=== PATIENT | male | born 1935 | race Native Hawaiian/Other Pacific Islander ===

== ENCOUNTER 2017-08-21 18:28 | Emergency (ER) | payer MEDICARE, SELFPAY ==
[2017-08-21 18:29] VITALS: BMI 21.2
[2017-08-21 18:57] VITALS: TEMP 97.7
--- NOTE | 2017-08-21 19:57 | C.PDOC ---
History Of Present Illness 81 year old male presents to the ED [facility] for evaluation of poorly controlled blood pressure. Patient reports that he felt dizzy while at home earlier this evening which has never happened in the past. He took Losartan 100 mg along with 3 other medications just prior to arrival. No other acute complaints at this time. Time Seen by Provider: 08/21/17 19:33 Chief Complaint (Nursing): High Blood Pressure History Per: Patient History/Exam Limitations: no limitations Onset/Duration Of Symptoms: Hrs Current Symptoms Are (Timing): Still Present Associated Symptoms: Dizziness. denies: Chest Pain Recent travel outside of the [place]: No Past Medical History Reviewed: Historical Data, Nursing Documentation, Vital Signs Vital Signs: Last Vital Signs Temp 97.7 F 08/21/17 18:52 Pulse 58 L 08/21/17 20:28 Resp 18 08/21/17 20:28 BP 156/78 H 08/21/17 20:28 Pulse Ox 98 08/21/17 20:48 - Medical History PMH: Arthritis, Diabetes, Diverticulitis (Perforated diverticulitis in 2013.), Fractures (LEFT FEMORAL JOINT DILOCATION CHILD), Gall Bladder Disease, HTN, Hypercholesterolemia Denies: Chronic Kidney Disease Surgical History: Cholecystectomy, Endoscopy - [facility] Procedures CLOSED ENDOSCOPIC BIOPSY OF LARGE INTESTINE (01/05/15) DX ULTRASOUND NEC (11/28/14) ENDO RECTUM POLYPECTOMY (09/16/13) ENDOSC RETROGRADE CHOLANGIOPANCREATOGRAPHY [ERCP] (06/10/14) ESOPHAGOGASTRODUODENOSCOPY [EGD] W/CLOSED BIOPSY (01/05/15) LAPAROSCOP LYSIS-PERITONEAL ADHES (05/10/14) LAPAROSCOPIC CHOLECYSTECTOMY (05/10/14) OPEN AND OTHER SIGMOIDECTOMY (09/16/13) PACKED CELL TRANSFUSION (09/16/13) PERCUTAN NEEDLE BIOPSY OF PROSTATE (11/28/14) UNILAT ING SRINATH REP NOS (09/16/13) Family History: States: Unknown Family Hx - Social History Hx Tobacco Use: No Hx Alcohol Use: No Hx Substance Use: No - Immunization History Hx Tetanus Toxoid Vaccination: No Hx Influenza Vaccination: Yes Hx Pneumococcal Vaccination: Yes Review Of Systems Except As Marked, All Systems Reviewed And Found Negative. Constitutional: Negative for: Fever, Chills ENT: Negative for: Ear Pain, Throat Pain Cardiovascular: Negative for: Chest Pain Respiratory: Negative for: Cough, Shortness of Breath Gastrointestinal: Negative for: Nausea, Vomiting, Abdominal Pain, Diarrhea Skin: Negative for: Rash Neurological: Positive for: Dizziness. Negative for: Headache Physical Exam - Physical Exam Appears: Well, Non-toxic, No Acute Distress, Other (Hypertensive) Skin: Normal Color, Warm, Dry Head: Atraumatic, Normacephalic Eye(s): bilateral: Other (glaucoma and blindness bilaterally ) Oral Mucosa: Moist Throat: Normal Neck: Normal, Normal ROM, Supple Chest: Symmetrical Cardiovascular: Rhythm Regular (Rate Regular) Respiratory: Normal Breath Sounds, No Rales, No Rhonchi, No Wheezing Gastrointestinal/Abdominal: Soft, No Tenderness Back: Normal Inspection Extremity: Normal ROM, No Deformity Extremity: Bilateral: Atraumatic Neurological/Psych: Oriented x3, Normal Speech Gait: Steady ED Course And Treatment - Laboratory Results Result Diagrams: 08/21/17 20:19 08/21/17 20:19 Lab Interpretation: Abnormal (+ microcytic anemia, chronic) ECG: Interpreted By Me, Viewed By Me ECG Rhythm: Sinus Rhythm ECG Interpretation: No Acute Changes Interpretation Of ECG: NSR at a rate of 61 beats per minute, no acute changes. Rate From EC O2 Sat by Pulse Oximetry: 98 (on RA) Pulse Ox Interpretation: Normal - Radiology CXR: Interpreted by Me CXR Interpretation: Yes: No Acute Disease - CT Scan/US head CT Other Rad Studies (CT/US): Radiology Report Reviewed (no acute findings) Reevaluation Time: 21:28 Reassessment Condition: Improved Medical Decision Making Medical Decision Making: Impression: Hypertension Plan: Head CT, EKG, labs, and CXR. Will reassess patient. 08/21/17 20:00 - Spoke with Dr. Clarke who states that the of the patient called saying that they ran out of his 0.3 mg clonidine patch. All other medications given prior to arrival. Dr. Clarke has called in the rx. He agreess that if workup is negative the patient can be discharged. though hypertensive @ home, pt took "all" his HTN meds just [facility]ATE and BP normalized in ER, no further meds given. w/u neg and dizziness resolved 2129: HTN meds have been called in for pt by Dr. Clarke, pending pickup. Disposition Doctor Will See Patient In The: Office Counseled Patient/Family Regarding: Studies Performed, Diagnosis - Disposition Disposition: HOME/ ROUTINE Disposition Time: 21:29 Condition: GOOD Forms: [employer] ([place]ian) - Clinical Impression Clinical Impression: Hypertension, Dizziness - Scribe Statement The provider has reviewed the documentation as recorded by the Scribe (Steffen Soto) Provider Attestation: All medical record entries made by the Scribe were at my direction and personally dictated by me. I have reviewed the chart and agree that the record accurately reflects my personal performance of the history, physical exam, medical decision making, and the department course for this patient. I have also personally directed, reviewed, and agree with the discharge instructions and disposition.
[2017-08-21 20:28] LABS: BASO # 0.1 K/uL (0.0-0.2); BASO % 1.4 % (0.0-2.0); EOS # 0.3 K/uL (0.0-0.7); EOS % 6.8 % (0.0-4.0); HEMOGLOBIN 11.3 g/dL (12.0-18.0); LYMPH # 1.3 K/uL (1.0-4.3); LYMPH % 26.8 % (20.0-40.0); MEAN CELL VOLUME 73.7 fL (80.0-94.0); MEAN CORPUSCULAR HEMOGLOBIN 23.4 pg (27.0-31.0); MEAN CORPUSCULAR HGB CONC 31.7 g/dL (33.0-37.0); MEAN PLATELET VOLUME 7.2 fL (7.2-11.7); MONO # 0.4 K/uL (0.0-0.8); MONO % 7.6 % (0.0-10.0); NEUT # 2.7 K/uL (1.8-7.0); NEUT % 57.4 % (50.0-75.0); NRBC % 0.1 % (0.0-2.0); RBC 4.83 Mil/uL (4.40-5.90); WHITE BLOOD COUNT 4.7 K/uL (4.8-10.8)
[2017-08-21 20:40] LABS: ALB/GLOB RATIO 0.9 (1.0-2.1); ALBUMIN 3.7 g/dL (3.5-5.0); ALT/SGPT 32 U/L (21-72); AST/SGOT 25 U/L (17-59); BLOOD UREA NITROGEN 12 mg/dL (9-20); GFR AFRICAN-AMERICAN > 60; GFR NON-AFRICAN AMERICAN > 60
[2017-08-21 20:41] LABS: SQUAMOUS EPITHIAL < 1 /hpf (0-5); URINE BILIRUBIN NEGATIVE (NEGATIVE); URINE BLOOD NEGATIVE (NEGATIVE); URINE CLARITY Clear (Clear); URINE COLOR Straw (YELLOW); URINE GLUCOSE (UA) 2+ mg/dL (Normal); URINE LEUKOCYTE ESTERASE NEG Leu/uL (Negative); URINE NITRATE NEGATIVE (NEGATIVE); URINE PROTEIN NEGATIVE (NEGATIVE); URINE UROBILINOGEN NORMAL mg/dL (0.2-1.0)
[2017-08-21 20:53] LABS: B-TYPE NATRIURETIC PEPTIDE 392 pg/mL (0-900)
[2017-08-21 21:31] VITALS: BP 179/80; PULSE 44; RESP 20; O2SAT 97
--- NOTE | 2017-08-21 21:42 | CT ---
EXAM: CT Head Without Intravenous Contrast CLINICAL HISTORY: 81 years old, male; Condition or disease; Headache; Headache not specified; Additional info: HTN, LANE, no neuro deficits TECHNIQUE: Axial computed tomography images of the head/brain without intravenous contrast. All CT scans at this facility use one or more dose reduction techniques, viz.: automated exposure control; ma/kV adjustment per patient size (including targeted exams where dose is matched to indication; i.e. head); or iterative reconstruction technique. COMPARISON: No relevant prior studies available. FINDINGS: Brain: Prominence of the sulci and ventricular system consistent with age related atrophy. Hypodensity in white matter consistent with chronic small vessel ischemic change. No intracranial mass, mass effect, or midline shift. No hemorrhage. Ventricles: See above. Bones/joints: Unremarkable. No acute fracture. Soft tissues: Unremarkable. Sinuses: Unremarkable as visualized. No acute sinusitis. Mastoid air cells: Unremarkable as visualized. No mastoid effusion. IMPRESSION: No acute intracranial abnormality.
--- NOTE | 2017-08-22 08:33 | RAD ---
Chest x-ray single frontal view History: Shortness breath. Comparison: 02/07/2017 Findings: Biapical pleural thickening with upper lobe granulomatous changes. Diffuse increased interstitial lung markings. Right hilar prominence. Small left pleural effusion with left basilar consolidative changes. Tortuous aorta. Mild cardiomegaly. Degenerative changes in the spine and shoulders. Surgical clips in the right upper abdomen. Impression: Biapical pleural thickening with upper lobe granulomatous changes. Diffuse increased interstitial lung markings. Right hilar prominence. Small left pleural effusion with left basilar consolidative changes. Tortuous aorta. Mild cardiomegaly.
--- NOTE | 2017-08-23 14:00 | CARD ---
APPROVED REPORT EKG Measurement Heart [id number] <Conclusion> Normal sinus rhythm Normal ECG
== END 2017-08-21 22:01 | disposition home or self-care (01) ==
LOC: C.ER 18:28
DX: I10 Essential (primary) hypertension (principal); R42 Dizziness and giddiness; E11.9 Type 2 diabetes mellitus without complications

== ENCOUNTER 2017-11-20 21:39 | Emergency (ER) | payer MEDICARE, SELFPAY ==
[2017-11-20 21:39] VITALS: BMI 21.2
--- NOTE | 2017-11-20 22:00 | C.PDOC ---
History Of Present Illness 82 year old male come to the ED accompanied by his for evaluation of high blood pressure. Patient states today at around 20:30 he started sweating, his took his blood pressure which was 225/113 at home. Patient denies headache , visual changes, nausea, vomit, CP, SOB, weakness, numbness. Time Seen by Provider: 11/20/17 21:59 Chief Complaint (Nursing): High Blood Pressure History Per: Patient History/Exam Limitations: no limitations Onset/Duration Of Symptoms: Hrs Current Symptoms Are (Timing): Still Present Associated Symptoms: Other (sweating) Quality Of Symptoms: Asymptomatic Severity: None Pain Scale Rating Of: 0 Exacerbating Factor(s): Pos: None Recent travel outside of the [place]: No Additional History Per: Patient Past Medical History Reviewed: Historical Data, Nursing Documentation, Vital Signs Vital Signs: Last Vital Signs Temp 97.6 F 11/20/17 21:47 Pulse 56 L 11/20/17 22:21 Resp 13 11/20/17 22:21 BP 180/76 H 11/20/17 22:21 Pulse Ox 97 11/20/17 23:01 - Medical History PMH: Arthritis, Diabetes, Diverticulitis (Perforated diverticulitis in 2013.), Fractures (LEFT FEMORAL JOINT DILOCATION CHILD), Gall Bladder Disease, HTN, Hypercholesterolemia Denies: Chronic Kidney Disease Surgical History: Cholecystectomy, Endoscopy - [facility] Procedures CLOSED ENDOSCOPIC BIOPSY OF LARGE INTESTINE (01/05/15) DX ULTRASOUND NEC (11/28/14) ENDO RECTUM POLYPECTOMY (09/16/13) ENDOSC RETROGRADE CHOLANGIOPANCREATOGRAPHY [ERCP] (06/10/14) ESOPHAGOGASTRODUODENOSCOPY [EGD] W/CLOSED BIOPSY (01/05/15) LAPAROSCOP LYSIS-PERITONEAL ADHES (05/10/14) LAPAROSCOPIC CHOLECYSTECTOMY (05/10/14) OPEN AND OTHER SIGMOIDECTOMY (09/16/13) PACKED CELL TRANSFUSION (09/16/13) PERCUTAN NEEDLE BIOPSY OF PROSTATE (11/28/14) UNILAT ING SRINATH REP NOS (09/16/13) Family History: States: Unknown Family Hx - Social History Hx Tobacco Use: No Hx Alcohol Use: No Hx Substance Use: No - Immunization History Hx Tetanus Toxoid Vaccination: No Hx Influenza Vaccination: Yes Hx Pneumococcal Vaccination: Yes Review Of Systems Constitutional: Negative for: Fever, Chills Eyes: Negative for: Vision Change Cardiovascular: Negative for: Chest Pain, Palpitations Respiratory: Negative for: Shortness of Breath Gastrointestinal: Negative for: Nausea, Vomiting Neurological: Negative for: Weakness, Numbness, Headache Physical Exam - Physical Exam Appears: Non-toxic, No Acute Distress Skin: Warm, Dry Head: Normacephalic Eye(s): bilateral: Other (Blind glaucoma) Oral Mucosa: Moist Teeth: No Normal Dentition (Poor dentition) Neck: Supple Chest: Symmetrical Cardiovascular: Rhythm Regular Respiratory: No Rales, No Rhonchi, No Wheezing Gastrointestinal/Abdominal: Soft, No Tenderness, No Guarding, No Rebound Back: Normal Inspection Extremity: Normal ROM, Capillary Refill (< 2 seconds) Extremity: Bilateral: Atraumatic, Normal Color And Temperature Pulses: Left Dorsalis Pedis: Normal, Right Dorsalis Pedis: Normal Neurological/Psych: Oriented x3, Normal Speech Gait: With Assistance ED Course And Treatment - Laboratory Results Result Diagrams: 11/20/17 22:21 11/20/17 22:21 ECG: Interpreted By Me, Viewed By Me ECG Rhythm: Sinus Rhythm (54), Nonspecific Changes O2 Sat by Pulse Oximetry: 97 (ON RA) Pulse Ox Interpretation: Normal - Radiology CXR: Interpreted by Me, Viewed By Me Progress Note: Plan: - EKG. - Labs. - CXR. - UA. spoke with the patient and (hipaa compliant) about the need to calibrate the home bp machine.Pt is asymptomatic and wants to go home. Encouraged to return if symptoms recur Medical Decision Making Medical Decision Making: Upon provider reevaluation patient is feeling better, is medically stable, and requires no further treatment in the ED at this time. Patient will be discharged home . Counseling was provided and all questions were answered regarding diagnosis and need for follow up with dr clarke. There is agreement to discharge plan. Return if symptoms persist or worsen. Disposition Counseled Patient/Family Regarding: Studies Performed, Diagnosis, Need For Followup - Disposition Referrals: Celestino Clarke MD [Staff Provider] - Disposition: HOME/ ROUTINE Disposition Time: 22:00 Condition: FAIR Instructions: High Blood Pressure (DC) Forms: [employer] (Upper Sorbian) - Clinical Impression Clinical Impression: Hypertension - Scribe Statement The provider has reviewed the documentation as recorded by the Scribe Daniel Adkins All medical record entries made by the Scribe were at my direction and personally dictated by me. I have reviewed the chart and agree that the record accurately reflects my personal performance of the history, physical exam, medical decision making, and the department course for this patient. I have also personally directed, reviewed, and agree with the discharge instructions and disposition.
[2017-11-20 22:24] LABS: BASO # 0.1 K/uL (0.0-0.2); BASO % 1.3 % (0.0-2.0); EOS # 0.3 K/uL (0.0-0.7); EOS % 6.3 % (0.0-4.0); HEMOGLOBIN 12.1 g/dL (12.0-18.0); LYMPH # 1.3 K/uL (1.0-4.3); LYMPH % 31.2 % (20.0-40.0); MEAN CELL VOLUME 74.2 fL (80.0-94.0); MEAN CORPUSCULAR HEMOGLOBIN 23.6 pg (27.0-31.0); MEAN CORPUSCULAR HGB CONC 31.8 g/dL (33.0-37.0); MEAN PLATELET VOLUME 7.5 fL (7.2-11.7); MONO # 0.4 K/uL (0.0-0.8); MONO % 10.2 % (0.0-10.0); NEUT # 2.1 K/uL (1.8-7.0); NRBC % 0.1 % (0.0-2.0); RBC 5.14 Mil/uL (4.40-5.90); RED CELL DISTRIBUTION WIDTH 14.6 % (11.5-14.5); WHITE BLOOD COUNT 4.2 K/uL (4.8-10.8)
[2017-11-20 22:27] LABS: URINE BILIRUBIN NEGATIVE (NEGATIVE); URINE BLOOD NEGATIVE (NEGATIVE); URINE CLARITY Clear (Clear); URINE COLOR Colorless (YELLOW); URINE GLUCOSE (UA) NORMAL (Normal); URINE LEUKOCYTE ESTERASE NEG Leu/uL (Negative); URINE PROTEIN NEGATIVE (NEGATIVE); URINE UROBILINOGEN NORMAL mg/dL (0.2-1.0)
[2017-11-20 22:36] LABS: ALBUMIN 3.9 g/dL (3.5-5.0); ALT/SGPT 23 U/L (21-72); AST/SGOT 25 U/L (17-59); BLOOD UREA NITROGEN 12 mg/dL (9-20); CALCIUM 8.5 mg/dl (8.6-10.4); GFR AFRICAN-AMERICAN > 60; GFR NON-AFRICAN AMERICAN > 60
[2017-11-20 22:39] LABS: PROTHROMBIN TIME 10.6 SECONDS (9.7-12.2)
[2017-11-20 23:46] VITALS: BP 166/81; PULSE 50; RESP 18; TEMP 98; O2SAT 100
--- NOTE | 2017-11-21 08:20 | RAD ---
PROCEDURE: CHEST RADIOGRAPH, 1 VIEW HISTORY: SOB COMPARISON: Portable chest 08/21/2017. FINDINGS: LUNGS: No acute pulmonary disease appreciated bilaterally. Elevated right hemidiaphragm reiterated. PLEURA: No pneumothorax or pleural fluid seen. CARDIOVASCULAR: Normal. OSSEOUS STRUCTURES: No significant abnormalities. VISUALIZED UPPER ABDOMEN: Surgical clips right upper quadrant abdomen. OTHER FINDINGS: None. IMPRESSION: Elevated right hemidiaphragm again evident. No acute infiltrate bilaterally, pleural effusion or pneumothorax.
== END 2017-11-20 23:46 | disposition home or self-care (01) ==
LOC: C.ER 21:39
DX: I10 Essential (primary) hypertension (principal); E11.9 Type 2 diabetes mellitus without complications; E78.00 Pure hypercholesterolemia, unspecified

== ENCOUNTER 2018-07-09 15:36 | Observation (INO) | payer MEDICARE ==
[2018-07-09 15:56] VITALS: BMI 22.1
[2018-07-09] MEDS: Sodium Chloride 0.9% 1,000 ML IV SCH (16:05)
--- NOTE | 2018-07-09 16:10 | C.PDOC ---
History Of Present Illness Patient is an 82 year old male with a PMHx of prostate cancer, diabetes, hypertension, and blindness secondary to glaucoma, who presents today complaining of generalized weakness since this morning. Per , she checked his blood pressure at home and found patient to be hypotensive. Blood pressure has been in the 80's systolic throughout the day. Patient states he tried to walk but was unable to stand due to the weakness. He denies any fever, chills, cough, chest pain, SOB, nausea, or vomiting. No focal weakness, numbness, slu rred speech, or facial droop. Time Seen by Provider: 07/09/18 15:56 Chief Complaint (Nursing): Weakness/Neurological Deficit History Per: Patient History/Exam Limitations: no limitations Onset/Duration Of Symptoms: Hrs Current Symptoms Are (Timing): Still Present Past Medical History Reviewed: Historical Data, Nursing Documentation, Vital Signs Vital Signs: Last Vital Signs Temp 97.7 F 07/09/18 15:51 Pulse 48 L 07/09/18 15:51 Resp 16 07/09/18 15:51 BP 170/85 H 07/09/18 15:51 Pulse Ox 99 07/09/18 15:51 - Medical History PMH: Arthritis, Diabetes, Diverticulitis (Perforated diverticulitis in 2013.), Fractures (LEFT FEMORAL JOINT DILOCATION CHILD), Gall Bladder Disease, HTN, Hypercholesterolemia Denies: Chronic Kidney Disease Surgical History: Cholecystectomy, Endoscopy - [facility] Procedures CLOSED ENDOSCOPIC BIOPSY OF LARGE INTESTINE (01/05/15) DX ULTRASOUND NEC (11/28/14) ENDO RECTUM POLYPECTOMY (09/16/13) ENDOSC RETROGRADE CHOLANGIOPANCREATOGRAPHY [ERCP] (06/10/14) ESOPHAGOGASTRODUODENOSCOPY [EGD] W/CLOSED BIOPSY (01/05/15) LAPAROSCOP LYSIS-PERITONEAL ADHES (05/10/14) LAPAROSCOPIC CHOLECYSTECTOMY (05/10/14) OPEN AND OTHER SIGMOIDECTOMY (09/16/13) PACKED CELL TRANSFUSION (09/16/13) PERCUTAN NEEDLE BIOPSY OF PROSTATE (11/28/14) UNILAT ING SRINATH REP NOS (09/16/13) Family History: States: Unknown Family Hx - Social History Hx Tobacco Use: No Hx Alcohol Use: No Hx Substance Use: No - Immunization History Hx Tetanus Toxoid Vaccination: No Hx Influenza Vaccination: Yes Hx Pneumococcal Vaccination: Yes Review Of Systems Except As Marked, All Systems Reviewed And Found Negative. Constitutional: Positive for: Weakness (generalized). Negative for: Fever, [place] Eyes: Positive for: Other (Blindness due to glaucoma) Cardiovascular: Negative for: Chest Pain, Palpitations Respiratory: Negative for: Cough, Shortness of Breath Gastrointestinal: Negative for: Nausea, Vomiting Neurological: Negative for: Weakness (focal), Numbness, Change in Speech, Confusion, Altered Mental Status, Headache Physical Exam - Physical Exam Appears: Non-toxic, No Acute Distress Skin: Warm, Dry Head: Atraumatic, Normacephalic Nose: Normal Oral Mucosa: Moist Neck: Normal ROM Chest: Symmetrical Cardiovascular: Rhythm Regular, No Murmur Respiratory: Normal Breath Sounds, No Rales, No Rhonchi, No Wheezing Gastrointestinal/Abdominal: Soft, No Tenderness, No Distention Back: Normal Inspection, No Vertebral Tenderness Extremity: Bilateral: Atraumatic, Normal Color And Temperature, Normal ROM Pulses: Left Dorsalis Pedis: Normal, Right Dorsalis Pedis: Normal Neurological/Psych: Oriented x3, Normal Speech Gait: Unable To Assess Extremity: Right: No Drift, Left: No Drift, Upper: No Drift, Lower: No Drift ED Course And Treatment - Laboratory Results Result Diagrams: 07/09/18 16:31 07/09/18 16:31 ECG: Interpreted By Me, Viewed By Nv ECG Rhythm: Sinus Bradycardia Interpretation Of ECG: no ST elevation, T wave inversions in multiple leads Rate From EC (bpm) O2 Sat by Pulse Oximetry: 99 (RA) Pulse Ox Interpretation: Normal - Radiology CXR: Read By Radiologist CXR Interpretation: Yes: No Acute Disease. No: Infiltrates - CT Scan/US CT Head Other Rad Studies (CT/US): Read By Radiologist, Radiology Report Reviewed CT/US Interpretation: Name:ERIKA COBB Exam Date:Jul 09, 2018 5:43:11 PM EST. Modality Type:CT. Description:CT - BRAIN. Gender:M Laterality:Not applicable. :34 Referring Physician:michael MCDANIELS, Pratik Clark EXAM: CT Head without Intravenous Contrast. CLINICAL HISTORY: Dizziness. TECHNIQUE: Axial computed tomography images of the head/brain without intravenous contrast. 0.00 mGy-cm. COMPARISON: None provided. FINDINGS: BRAIN. No acute intraparenchymal hemorrhage. No mass lesion. No CT evidence for acute territorial infarct. No midline shift or extra- axial collections. VENTRICLES: No hydrocephalus. ORBITS: The orbits are unremarkable. SINUSES AND MASTOIDS: The paranasal sinuses and mastoid air cells are clear. BONES: No fracture. SOFT TISSUES: Unremarkable. IMPRESSION: No acute intracranial abnormality. . Electronically signed on Jul 09, 2018 5:53:27 PM EST by: Ermias Schuster M.D., Certified by ABR, Diagnostic Radiology NIHSS Stroke Scale 2 - Date/Time Evaluation Performed Date Performed: 07/09/18 Time Performed: 15:56 When Was NIHSS Performed: Baseline - How Severe is the Stroke Level of Consciousness: 0=Alert LOC to Questions: 0=Both comments correct LOC to commands: 0=Obeys both correctly Visual: 0=No visual loss Facial: 0=Normal Motor Arm - Left: 0=No drift Motor Arm - Right: 0=No drift Motor Leg - Left: 0=No drift Motor Leg - Right: 0=No drift Limb Ataxia: 0=Absent Sensory: 0=Normal Best Language: 0=No aphasia Dysarthia: 0=Normal articulation Extinction & Inattention (Neglect): 0=Normal, no object Medical Decision Making Medical Decision Making: Plan: --EKG --CMP --CK-MB --Troponin I --Lactic acid --CBC --Urine culture --Blood culture --UA --Chest x-ray --IV fluids CXR shows no acute disease, no infiltrates. Labs reviewed. CT findings reviewed. Discussed case with Dr. Clarke, who accepts patient for admission. Disposition Discussed With : Celestino Clarke Doctor Will See Patient In The: Hospital - Disposition Disposition: HOSPITALIZED Disposition Time: 18:30 Condition: GUARDED - POA Present On Arrival: None - Clinical Impression Clinical Impression: Hypotension, Near syncope, Gait disturbance - Scribe Statement The provider has reviewed the documentation as recorded by the Samuelibdomingo Adkins Provider Attestation: All medical record entries made by the Scribe were at my direction and p ersonally dictated by me. I have reviewed the chart and agree that the record accurately reflects my personal performance of the history, physical exam, medical decision making, and the department course for this patient. I have also personally directed, reviewed, and agree with the discharge instructions and disposition.
[2018-07-09] MEDS ORDERED: Sodium Chloride 0.9% 1,000 ML ONE (16:20)
--- NOTE | 2018-07-09 16:23 | RAD ---
Date of service: 07/09/2018 PROCEDURE: CHEST RADIOGRAPH, 1 VIEW HISTORY: SOB COMPARISON: 11/20/2017. FINDINGS: LUNGS: The lungs are well inflated and clear. PLEURA: No pneumothorax or pleural effusion. CARDIOVASCULAR: The heart is normal in size. There are aortic atherosclerotic calcifications present. OSSEOUS STRUCTURES: Within normal limits for the patient's age. VISUALIZED UPPER ABDOMEN: Normal. OTHER FINDINGS: None. IMPRESSION: No active pulmonary disease.
[2018-07-09 16:34] LABS: BASO % 0.8 % (0.0-2.0); EOS # 0.2 K/uL (0.0-0.7); EOS % 4.1 % (0.0-4.0); HEMOGLOBIN 11.6 g/dL (12.0-18.0); LYMPH # 1.4 K/uL (1.0-4.3); LYMPH % 23.7 % (20.0-40.0); MEAN CELL VOLUME 74.2 fL (80.0-94.0); MEAN PLATELET VOLUME 6.8 fL (7.2-11.7); MONO # 0.6 K/uL (0.0-0.8); MONO % 9.3 % (0.0-10.0); NEUT # 3.7 K/uL (1.8-7.0); NEUT % 62.1 % (50.0-75.0); NRBC % 0.1 % (0.0-2.0); RBC 5.05 Mil/uL (4.40-5.90); RED CELL DISTRIBUTION WIDTH 14.5 % (11.5-14.5)
[2018-07-09 16:38] LABS: URINE BACTERIA RARE (<OCC); URINE BILIRUBIN NEGATIVE (NEGATIVE); URINE BLOOD NEGATIVE (NEGATIVE); URINE CLARITY Clear (Clear); URINE COLOR Straw (YELLOW); URINE GLUCOSE (UA) NORMAL (Normal); URINE LEUKOCYTE ESTERASE NEG Leu/uL (Negative); URINE PROTEIN NEGATIVE (NEGATIVE); URINE UROBILINOGEN NORMAL mg/dL (0.2-1.0)
[2018-07-09 16:48] LABS: ALB/GLOB RATIO 1.1 (1.0-2.1); ALBUMIN 4.1 g/dL (3.5-5.0); ALT/SGPT 18 U/L (21-72); AST/SGOT 25 U/L (17-59); BLOOD UREA NITROGEN 14 mg/dL (9-20); CALCIUM 8.7 mg/dl (8.6-10.4); GFR NON-AFRICAN AMERICAN 48
[2018-07-09 17:16] LABS: CK-MB 0.44 ng/mL (0.0-3.38)
[2018-07-09] MEDS: (Novolog) Insulin Aspart, Recombinant 100 u/ml 10 ml vial SC SCH (22:48)
[2018-07-10] MEDS: Sodium Chloride 0.9% 1,000 ML IV SCH ×2 (02:00→21:45)
[2018-07-10] MEDS ORDERED: Sodium Chloride 0.9% 1,000 ML ONE (02:21)
[2018-07-10] MEDS: (Novolog) Insulin Aspart, Recombinant 100 u/ml 10 ml vial SC SCH ×4 (08:21→21:48)
--- NOTE | 2018-07-10 08:21 | CT ---
Date of service: 07/09/2018 PROCEDURE: CT HEAD WITHOUT CONTRAST. HISTORY: Dizziness COMPARISON: 08/21/2017 TECHNIQUE: Axial computed tomography images were obtained through the head/brain without intravenous contrast. Radiation dose: Total exam DLP = 956.04 mGy-cm. This CT exam was performed using one or more of the following dose reduction techniques: Automated exposure control, adjustment of the mA and/or kV according to patient size, and/or use of iterative reconstruction technique. FINDINGS: HEMORRHAGE: No intracranial hemorrhage. BRAIN: No mass effect or edema. Scattered focal lucencies in the subcortical and periventricular white matter suggestive for chronic microvascular ischemic change. Diffuse generalized parenchymal atrophy. Cerebellar atrophy. Punctate right caudate head lacunar infarct. Prominence of the extraaxial CSF space adjacent to the left cerebellum as seen on series 4 images 13 through 17 which may be related to patient positioning. This was also noted on the prior study. Clinical correlation. VENTRICLES: Unremarkable. No hydrocephalus. CALVARIUM: Unremarkable. PARANASAL SINUSES: Mild mucosal thickening of the ethmoid air cells. MASTOID AIR CELLS: Unremarkable as visualized. No inflammatory changes. OTHER FINDINGS: Intracranial arterial calcifications. IMPRESSION: No acute intracranial abnormality. Chronic microvascular ischemic changes. Atrophy. Additional findings as above. If symptoms persists, consider correlation with MRI. A preliminary report was generated at 5:53 p.m. on 07/09/[address] Ermias Schuster from [employer].
[2018-07-10] MEDS ORDERED: Home Med 1 UNIT (Febuxostat [Uloric] 80 MG) PO SCH (10:00)
[2018-07-10] MEDS: Metoprolol Succinate 100 mg XL Tab PO SCH ×2 (10:23→18:07)
[2018-07-10] MEDS: Enoxaparin 40 mg Syringe SC SCH (10:23)
[2018-07-10] MEDS ORDERED: Dextrose 50% SYRINGE Inj (50 ml) ONE (15:17)
[2018-07-10] MEDS ORDERED: Dextrose 50% SYRINGE Inj (50 ml) IVP PRN (15:43)
[2018-07-10] MEDS ORDERED: Glucagon Recombinant 1 mg Inj IM PRN (15:43)
--- NOTE | 2018-07-10 21:30 | CARD ---
APPROVED REPORT Date of service: 07/09/2018 EKG Measurement Heart [id number] <Conclusion> Junctional rhythm Early repolarization Abnormal ECG
--- NOTE | 2018-07-10 23:41 | CP.PCM.HP ---
History of Present Illness - History of Present Illness History of Present Illness: According to the patient's , the patient's blood pressure was low the whole day on 07/09/2018. The patient tumbled on his way to the bathroom at home, pulling his who felt over him. The patient denied any dizziness, loss of co nsciousness but felt very weak. There was no fever, no cough, diarrhea, vomiting, palpitation. He is known to have a hypertension, a NIDDM, a prostatic cancer, a glaucoma a congenital dislocation of the right hip. When the EMS arrived, the patient's BP was normal. A CT scan of the head in the ED at [facility] was essentially unremarkable. But the patient developed an episode of hypoglycemia during his stay in the Hospital. Glimepide was discontinued. At the time of this examination, the patient has no complaint. Present on Admission - Present on Admission Any Indicators Present on Admission: No Review of Systems - Constitutional Constitutional: Weakness - Musculoskeletal Musculoskeletal: Muscle Weakness Additional comments: Weakness of the lower extremities. Past Patient History - Infectious Disease Hx of Infectious Diseases: None - Tetanus Immunizations Tetanus Immunization: Unknown - Past Medical History & Family History Past Medical History?: Yes - Past Social History Smoking Status: Never Smoked Alcohol: None Home Situation {Lives}: With Family Domestic Violence: Negative - CARDIAC Hx Hypercholesterolemia: Yes Hx Hypertension: Yes - PULMONARY Hx Respiratory Disorders: No - NEUROLOGICAL HX Cerebrovascular Accident: Yes - HEENT Hx HEENT Problems: Yes Hx Blind: Yes (PARTIAL BLINDNESS LEFT EYE) Hx Glaucoma: Yes - RENAL Hx Chronic Kidney Disease: No - ENDOCRINE/METABOLIC Hx Diabetes Mellitus Type 2: Yes - HEMATOLOGICAL/ONCOLOGICAL Hx Blood Disorders: No - INTEGUMENTARY Hx Dermatological Problems: No - MUSCULOSKELETAL/RHEUMATOLOGICAL Hx Arthritis: Yes Hx Fractures: Yes (LEFT FEMORAL JOINT DILOCATION CHILD) - GASTROINTESTINAL Hx Diverticulitis: Yes (Perforated diverticulitis in 2013.) Hx Gall Bladder Disease: Yes (CBD stones in 2014.) - GENITOURINARY/GYNECOLOGICAL Hx Genitourinary Disorders: Yes (ELEVATED PSA) Hx Prostate Cancer: Yes - PSYCHIATRIC Hx Substance Use: No - SURGICAL HISTORY Hx Cholecystectomy: Yes (in 2014) - ANESTHESIA Hx Anesthesia: Yes Hx Anesthesia Reactions: No Hx Malignant Hyperthermia: No Meds Allergies/Adverse Reactions: Allergies Allergy/AdvReac Type Severity Reaction Status Date / Time Penicillins Allergy Intermediate Verified 07/09/18 15:55 Physical Exam - Constitutional Appears: No Acute Distress, Chronically Ill - Head Exam Head Exam: NORMAL INSPECTION - Eye Exam Eye Exam: Normal appearance - ENT Exam ENT Exam: Normal Exam - Neck Exam Neck exam: Positive for: Normal Inspection - Respiratory Exam Respiratory Exam: Clear to Auscultation Bilateral - Cardiovascular Exam Cardiovascular Exam: REGULAR RHYTHM - GI/Abdominal Exam GI & Abdominal Exam: Normal Bowel Sounds, Soft - Rectal Exam Rectal Exam: Deferred - Exam Exam: NORMAL INSPECTION - Extremities Exam Extremities exam: Positive for: normal inspection - Back Exam Back exam: NORMAL INSPECTION - Neurological Exam Neurological exam: Alert, Oriented x3 - Psychiatric Exam Psychiatric exam: Anxious - Skin Skin Exam: Dry, Intact, Normal Color, Warm Results - Vital Signs Recent Vital Signs: Last Vital Signs Temp 97.4 F L 07/10/18 15:00 Pulse 58 L 07/10/18 16:00 Resp 20 07/10/18 15:00 BP 113/47 L 07/10/18 15:00 Pulse Ox 96 07/10/18 15:00 - Labs Result Diagrams: 07/09/18 16:31 07/09/18 16:31 Labs: Laboratory Results - last 24 hr 07/10/18 07/10/18 07/10/18 04:23 04:23 08:20 POC Glucose (mg/dL) 127 H Hemoglobin A1c 6.6 H Prostate Specific Ag 0.156 07/10/18 07/10/18 07/10/18 11:35 15:12 15:27 POC Glucose (mg/dL) 183 H 51 L 239 H Hemoglobin A1c Prostate Specific Ag 07/10/18 07/10/18 16:37 21:11 POC Glucose (mg/dL) 134 H 113 H Hemoglobin A1c Prostate Specific Ag Assessment & Plan (1) Hypotension Status: Acute (2) Weakness of both lower extremities Status: Acute (3) Hypoglycemia associated with type 2 diabetes mellitus Assessment and Plan: Discontinue Glimepiride. Status: Acute Decision To Admit - Pt Status Changed To: Hospital Disposition Of: Observation - . Bed Request Type: Telemetry Admitting Physician: Celestino Clarke
[2018-07-11 08:09] VITALS: BP 120/67; PULSE 54; RESP 18; TEMP 98.6; O2SAT 97
[2018-07-11] MEDS: (Novolog) Insulin Aspart, Recombinant 100 u/ml 10 ml vial SC SCH (08:45)
[2018-07-11] MEDS: Enoxaparin 40 mg Syringe SC SCH (10:59)
[2018-07-11] MEDS: Metoprolol Succinate 100 mg XL Tab PO SCH (10:59)
== END 2018-07-11 12:16 | disposition home or self-care (01) ==
LOC: C.ER 15:36 → C.9E 18:41 → C.6T 07-10 07:00
PROVIDERS: ADMIT Internal Medicine Cardiovascular Disease; ATTEND Internal Medicine Cardiovascular Disease
DX: I95.9 Hypotension, unspecified (principal); R55 Syncope and collapse; R26.9 Unspecified abnormalities of gait and mobility; C61 Malignant neoplasm of prostate; E78.00 Pure hypercholesterolemia, unspecified; I10 Essential (primary) hypertension; E11.649 Type 2 diabetes mellitus with hypoglycemia without coma; H40.9 Unspecified glaucoma; Z79.84 Long term (current) use of oral hypoglycemic drugs; Z85.46 Personal history of malignant neoplasm of prostate; Z86.73 Personal history of transient ischemic attack (TIA), and cerebral infarction without residual deficits; Z90.49 Acquired absence of other specified parts of digestive tract
CPT/HCPCS: 70450; 71045; 80053; 81001; 82553; 82948; 83036; 83605; 84153; 84484; 85025; 87040; 87086; 93005; 97116; 97162; 97530; 99285; G0378; G8978; G8979; J1650; J7030